=== PATIENT | male | born 1995 | race Caucasian/White ===

== ENCOUNTER 2021-12-10 12:40 | Emergency (ER) | payer OTHER ==
[~2021-12-10] VITALS: Ht 175.3 cm; Wt 79.4 kg
[2021-12-10 13:01] VITALS: BP 119/66
--- NOTE | 2021-12-10 13:12 | NUR ---
26 Y/O MALE BIB SELF C/O SHARP BACK PAIN RADIATING TO LEGS 7/10 LAST NIGHT AFTER PICKING UP GROOM IN A [place]ING.TOOK ADVIL WITH MINIMAL RELIEF, DIFFICULTY IN AMBULATING. NO BRUISING NOTED IN BACK, DENIED FALL. NKA PMH: ASTHMA
--- NOTE | 2021-12-10 13:20 | NUR ---
DR TANNER AT BEDSIDE FOR EVAL
[2021-12-10] MEDS ORDERED: ACET-8386 PO (13:28)
[2021-12-10] MEDS ORDERED: IBUP-2213 PO (13:28)
[2021-12-10] MEDS: KETOROLAC 60 MG/2 ML VIAL IM ONE (13:36)
--- NOTE | 2021-12-10 13:47 | NUR ---
Patient discharged with v/s stable. Written and verbal after care instructions ABOUT ACUTE BACK PAIN given and explained. Patient alert, oriented and verbalized understanding of instructions. Ambulatory with steady gait. All questions addressed prior to discharge. ID band removed. Patient advised to follow up with PMD. Rx of NORCO 5-325 AND MOTRIN given. Patient educated on indication of medication including possible reaction and side effects. Opportunity to ask questions provided and answered.
== END 2021-12-10 13:47 | disposition home or self-care (01) ==
LOC: MED 12:40
DX: M54.50 Low back pain, unspecified (principal)
CPT/HCPCS: 96372; 99283; J1885

== ENCOUNTER 2024-04-04 14:31 | Emergency (ER) | payer OTHER ==
[~2024-04-04] VITALS: Ht 175.3 cm; Wt 81.6 kg
[~2024-04-04 14:31] MED LIST: ACET-8905 PO; IBUP-2213 PO
[2024-04-04 15:43] VITALS: BP 126/75; PULSE 68; RESP 18; TEMP 97.7; O2SAT 98
[2024-04-04] MEDS: LIDOCAINE MPF 1% 10 MG/ML VIAL INJ ONE (16:44)
[2024-04-04] MEDS: BACITRACIN OINT 500 UNITS/GM PKT TP ONE (16:50)
[2024-04-04] MEDS ORDERED: BACI-418 TP (17:01)
[2024-04-04] MEDS ORDERED: IBUP-2213 PO (17:01)
[2024-04-04 17:25] VITALS: BP 126/75; PULSE 68; RESP 18; TEMP 97.7; O2SAT 98
== END 2024-04-04 17:25 | disposition home or self-care (01) ==
LOC: MED 14:31
DX: S81.011A Laceration without foreign body, right knee, initial encounter (principal); J45.909 Unspecified asthma, uncomplicated; Z79.899 Other long term (current) drug therapy; W01.0XXA Fall on same level from slipping, tripping and stumbling without subsequent striking against object, initial encounter; Y92.89 Other specified places as the place of occurrence of the external cause; Y93.89 Activity, other specified; Y99.8 Other external cause status
CPT/HCPCS: 12002; 90471; 90715; 99283; J2001